=== PATIENT | female | born 1935 | race Caucasian/White ===

== ENCOUNTER 2021-07-20 11:23 | Outpatient (CLI) | payer MEDICARE | END 2021-07-20 11:24 | disposition home or self-care (01) | LOC: SCSRAD 11:23 | PROVIDERS: ATTEND Family Medicine | DX: R05.9 Cough, unspecified (principal) | CPT/HCPCS: 71046 ==

== ENCOUNTER 2021-12-05 13:31 | Outpatient (CLI) | payer MEDICARE ==
[2021-12-05 14:52] LABS: #Basophils 0.1 10x3/uL (0.0-0.2); #Eosinphils 0.3 10x3/uL (0.0-0.5); #Monocytes 0.5 10x3/uL (0.0-1.1); #Neutrophils 6.1 10x3/uL (1.5-8.4); %Basophils 1.4 % (0.0-2.0); %Eosinophils 3.2 % (0.0-6.0); %Lymphocytes 18.3 % (18.0-47.0); %Monocytes 6.1 % (0.0-10.0); %Neutrophils 70.4 % (40.0-75.0); Hemoglobin 14.8 g/dL (12.0-15.5); Mean Corpuscular Hemoglobin 30.2 pg (27.0-33.0); Mean Corpuscular Volume 97.3 fl (81.6-98.3); Mean Platelet Volume 11.6 fl (7.4-10.4); Platelet Count 270 10x3/uL (150-450); RBC Distribution Width 24.5 % (11.5-14.5); White Blood Cell (WBC) Count 8.7 10x3/uL (3.5-10.5)
[2021-12-05 15:20] LABS: Anion Gap 17 mmol/L (10-20); BUN (Urea Nitrogen) 23 mg/dL (9.8-20.1); Calc. Creatinine Clearance 0 mL/min (70-130); Calcium 9.1 mg/dL (7.8-10.44); Carbon Dioxide 27 mmol/L (23-31); Chloride 103 mmol/L (98-107); Glucose 143 mg/dL (83-110); Sodium 143 mmol/L (136-145)
[2021-12-05 17:05] LABS: Anisocytosis MODERATE=16-30 cells (100X) (0-5/hpf)
[2021-12-06 03:27] LABS: SARS-CoV-2 PCR by NAA Not Detected (NotDetected)
== END 2021-12-05 13:32 | disposition home or self-care (01) ==
LOC: LABBT 13:31
PROVIDERS: ATTEND Surgery
DX: Z01.812 Encounter for preprocedural laboratory examination (principal); K40.90 Unilateral inguinal hernia, without obstruction or gangrene, not specified as recurrent; Z20.822 Contact with and (suspected) exposure to COVID-19
CPT/HCPCS: 80048; 85025; 93005; U0003; U0005; 93010

== ENCOUNTER 2021-12-08 09:28 | Day surgery (SDC) | payer MEDICARE ==
[2021-12-02 13:01] VITALS: BMI 34.2
[2021-12-08] MEDS ORDERED: Lidocaine 1% w/Epinephrine 1:100K 30 ML VIAL ONE (10:58)
[2021-12-08] MEDS ORDERED: Bupivacaine PF 0.5% 30 ML VIAL ONE (10:58)
[2021-12-08] MEDS ORDERED: Bupivacaine 0.25% HCL 30 ML VIAL ONE (10:58)
[2021-12-08] MEDS ORDERED: ceFAZolin 2 GM/Dextrose 50 ML IVPB ONE (11:25)
[2021-12-08] MEDS ORDERED: Fentanyl 100 MCG/2 ML VIAL ONE (11:33)
[2021-12-08] MEDS ORDERED: PROPOFOL 200 MG/20 ML VIAL ONE (11:46)
[2021-12-08] MEDS ORDERED: ePHEDrine 50 MG/ML VIAL ONE (11:46)
[2021-12-08] MEDS ORDERED: Dexamethasone 20 MG/5 ML VIAL ONE (11:46)
[2021-12-08] MEDS ORDERED: Glycopyrrolate 0.2 MG/ML 5 ML SYRINGE ONE (11:46)
[2021-12-08] MEDS ORDERED: Lidocaine 1% PF 5 ML VIAL ONE (11:46)
[2021-12-08] MEDS ORDERED: Ondansetron PF 4 MG/2 ML Vial ONE (11:46)
[2021-12-08] MEDS ORDERED: PHENYLEPHRINE-NS 100 MCG/ML 10 ML SYRINGE ONE (11:46)
[2021-12-08] MEDS ORDERED: HYDROcodone/Acetaminophen 5/325 mg Tablet ONE (14:23)
== END 2021-12-08 15:10 | disposition home or self-care (01) ==
LOC: SDC 09:28
PROVIDERS: ATTEND Surgery
PROC: 0YU50JZ Supplement Right Inguinal Region with Synthetic Substitute, Open Approach (ICD-10-PCS; principal; 2021-12-08)
DX: K40.90 Unilateral inguinal hernia, without obstruction or gangrene, not specified as recurrent (principal); I10 Essential (primary) hypertension; E78.5 Hyperlipidemia, unspecified; K21.9 Gastro-esophageal reflux disease without esophagitis; M19.90 Unspecified osteoarthritis, unspecified site; E03.9 Hypothyroidism, unspecified; G25.81 Restless legs syndrome; D75.1 Secondary polycythemia; Z79.02 Long term (current) use of antithrombotics/antiplatelets; Z79.82 Long term (current) use of aspirin; Z79.899 Other long term (current) drug therapy; Z88.0 Allergy status to penicillin; Z88.2 Allergy status to sulfonamides
CPT/HCPCS: C1781; J0690; J1100; J2405; J2704; J3010; J3490; S0020

== ENCOUNTER 2022-02-16 10:39 | Inpatient (IN) | payer MEDICARE ==
[2022-02-16 11:17] LABS: #Lymphocytes 0.9 thou/uL (1.20-3.40); #Monocytes 1.1 thou/uL (0.11-0.59); #Neutrophils 12.9 thou/uL (1.40-6.50); %Basophils 0.1 % (0.0-1.0); %Eosinophils 0.2 % (0.0-10.0); %Lymphocytes 5.7 % (21.0-51.0); %Monocytes 7.5 % (0.0-10.0); %Neutrophils 86.4 % (42.0-75.0); Mean Corpuscular HGB CONC 31.8 g/dL (32.0-36.0); Mean Corpuscular Hemoglobin 35.2 pg (27.0-31.0); Mean Platelet Volume 9.2 fL (7.4-10.4); Platelet Count 241 thou/uL (130-400); Red Blood Cell (RBC) Count 3.97 mill/uL (4.20-5.40); White Blood Cell (WBC) Count 14.9 thou/uL (4.8-10.8)
[2022-02-16] MEDS ORDERED: cefTRIAXone\\ROCEPHIN 1 GM VIAL ONE (11:25)
[2022-02-16] MEDS ORDERED: Vancomycin 1 GM/200 ML BAG ONE (11:25)
[2022-02-16 11:27] LABS: INR-International Normal Ratio 1.2; PTT 33.5 sec (22.9-36.1); Prothrombin Time 15.1 sec (12.0-14.7)
[2022-02-16 11:31] LABS: MDiff Complete? YES; Macrocytosis MODERATE=16-30 cells (100X) (0-5/hpf); Ovalocytes SLIGHT = 2-5 cells (100X) (0-1/hpf); Platelet Morphology Comment Appears Adequate; Polychromasia SLIGHT = 2-3 cells (100X) (0-2/hpf)
[2022-02-16 11:40] LABS: ALT (SGPT) 7 U/L (8-55); AST (SGOT) 13 U/L (5-34); Albumin 3.5 g/dL (3.4-4.8); Alkaline Phosphatase 88 U/L (40-110); Anion Gap 15 mmol/L (10-20); BUN (Urea Nitrogen) 23 mg/dL (9.8-20.1); Bilirubin, Total 1.3 mg/dL (0.2-1.2); Calc. Creatinine Clearance 0 mL/min (70-130); Calcium 8.5 mg/dL (7.8-10.44); Carbon Dioxide 25 mmol/L (23-31); Chloride 105 mmol/L (98-107); Globulin 2.8 g/dL (2.4-3.5); Glucose 121 mg/dL (83-110); Potassium 3.8 mmol/L (3.5-5.1); Protein, Total 6.3 g/dL (5.8-8.1); Sodium 141 mmol/L (136-145)
[2022-02-16] MEDS ORDERED: Norepinephrine 8 MG/0.9% NS 250 ML ONE (13:02)
[2022-02-16] MEDS ORDERED: Ondansetron PF 4 MG/2 ML Vial IVP PRN (14:56)
[2022-02-16] MEDS ORDERED: Ondansetron ODT 4 MG TAB PO PRN (14:56)
[2022-02-16] MEDS ORDERED: Senokot S 8.6-50 MG TAB PO PRN (14:56)
[2022-02-16] MEDS ORDERED: Acetaminophen 325 MG TAB PO PRN (14:56)
[2022-02-16] MEDS ORDERED: Sodium Chloride 0.9% 1,000 ML IV SCH (15:45)
[2022-02-16] MEDS ORDERED: Norepinephrine 8 MG/0.9% NS 250 ML IVPB SCH (16:00)
[2022-02-16 16:26] LABS: SARS-CoV-2 NAA Rapid Test Not Detected (NotDetected)
[2022-02-16] MEDS ORDERED: cefTRIAXone\\ROCEPHIN 1 GM in Sodium Chloride 0.9% 100 ML IVPB SCH (18:30)
[2022-02-16 20:14] LABS: Bacteria/HPF None Seen HPF (None Seen); Bilirubin Negative (Negative); Blood, Urine 1+ (Negative); Clarity Turbid (Clear); Glucose, Urine (Dipstick) Normal (Negative); Ketone, Urine Trace mg/dL (Negative); Leukocyte 500 Leu/uL (Negative); Nitrite 2+ (Negative); Protein, Urine (Dipstick) 20 mg/dL (Neg-Trace); Specific Gravity, Urine 1.024 (1.002-1.036); Squamous Epithelial None Seen HPF (0-3); Urobilinogen Normal mg/dL (Less than 2); WBC/HPF Greater than 50 HPF (0-3)
[2022-02-16 20:15] LABS: Urine Culture Reflex Yes Yes
[2022-02-17] MEDS: Sodium Chloride 0.9% 1,000 ML IV SCH ×2 (01:34→08:45)
[2022-02-17 03:50] LABS: #Eosinphils 0.1 thou/uL (0.0-0.7); #Lymphocytes 1.1 thou/uL (1.20-3.40); #Monocytes 0.9 thou/uL (0.11-0.59); #Neutrophils 9.6 thou/uL (1.40-6.50); %Basophils 0.3 % (0.0-1.0); %Eosinophils 0.7 % (0.0-10.0); %Lymphocytes 9.3 % (21.0-51.0); %Monocytes 7.6 % (0.0-10.0); Hemoglobin 12.4 g/dL (12.0-16.0); Mean Corpuscular HGB CONC 31.2 g/dL (32.0-36.0); Mean Corpuscular Hemoglobin 34.8 pg (27.0-31.0); Mean Platelet Volume 8.9 fL (7.4-10.4); Platelet Count 231 thou/uL (130-400); RBC Distribution Width 17.2 % (11.5-14.5); Red Blood Cell (RBC) Count 3.55 mill/uL (4.20-5.40); White Blood Cell (WBC) Count 11.7 thou/uL (4.8-10.8)
[2022-02-17 04:10] LABS: Anion Gap 14 mmol/L (10-20); BUN (Urea Nitrogen) 19 mg/dL (9.8-20.1); Calc. Creatinine Clearance 49 mL/min (70-130); Calcium 7.9 mg/dL (7.8-10.44); Carbon Dioxide 23 mmol/L (23-31); Chloride 108 mmol/L (98-107); Glucose 85 mg/dL (83-110); Potassium 3.5 mmol/L (3.5-5.1); Sodium 141 mmol/L (136-145)
[2022-02-17 04:56] VITALS: BMI 26.7
[2022-02-17] MEDS: Enoxaparin Sodium 40 MG/0.4 ML SYRINGE SC SCH (08:45)
[2022-02-17] MEDS ORDERED: Enoxaparin Sodium 30 MG/0.3 ML SYRINGE SC SCH (09:00)
[2022-02-17] MEDS ORDERED: Vancomycin 1 GM in Premix Bag 1 BAG IVPB SCH (12:00)
[2022-02-17] MEDS: cefTRIAXone\\ROCEPHIN 2 GM in Sodium Chloride 0.9% 100 ML IVPB SCH (12:06)
[2022-02-17] MEDS ORDERED: Ondansetron ODT 4 MG TAB PO PRN (16:07)
[2022-02-17] MEDS ORDERED: HYDROcodone/Acetaminophen 5/325 mg Tablet PO PRN (16:07)
[2022-02-17] MEDS: Donepezil HCl 10 MG TAB PO SCH (20:25)
[2022-02-17] MEDS: Atorvastatin Calcium 40 MG TAB PO SCH (20:25)
[2022-02-17] MEDS: Melatonin 3 MG TAB PO PRN (20:25)
[2022-02-17] MEDS: Calcium Carbonate 500 MG ChewTAB PO SCH (20:25)
[2022-02-17] MEDS: Acetaminophen 500 MG TAB PO SCH (20:25)
[2022-02-17] MEDS: Azelastine 137 MCG/Spray 30 ML NS SCH (21:37)
[2022-02-18 04:36] LABS: #Basophils 0.1 thou/uL (0.0-0.2); #Eosinphils 0.2 thou/uL (0.0-0.7); #Lymphocytes 1.3 thou/uL (1.20-3.40); #Monocytes 1.2 thou/uL (0.11-0.59); #Neutrophils 9.9 thou/uL (1.40-6.50); %Basophils 0.6 % (0.0-1.0); %Eosinophils 1.8 % (0.0-10.0); %Lymphocytes 10.3 % (21.0-51.0); %Monocytes 9.1 % (0.0-10.0); %Neutrophils 78.3 % (42.0-75.0); Hemoglobin 13.2 g/dL (12.0-16.0); Mean Corpuscular HGB CONC 31.7 g/dL (32.0-36.0); Mean Corpuscular Hemoglobin 35.3 pg (27.0-31.0); Platelet Count 217 thou/uL (130-400); RBC Distribution Width 16.7 % (11.5-14.5); Red Blood Cell (RBC) Count 3.74 mill/uL (4.20-5.40); White Blood Cell (WBC) Count 12.6 thou/uL (4.8-10.8)
[2022-02-18 04:55] LABS: Anion Gap 11 mmol/L (10-20); BUN (Urea Nitrogen) 14 mg/dL (9.8-20.1); Calc. Creatinine Clearance 50 mL/min (70-130); Calcium 8.1 mg/dL (7.8-10.44); Carbon Dioxide 26 mmol/L (23-31); Chloride 108 mmol/L (98-107); Glucose 95 mg/dL (83-110); Potassium 3.3 mmol/L (3.5-5.1); Sodium 142 mmol/L (136-145)
[2022-02-18] MEDS ORDERED: Potassium Chloride 20 MEQ TAB PO SCH (05:00)
[2022-02-18] MEDS ORDERED: Diltiazem 125 MG in Sodium Chloride 0.9% 100 ML IVPB SCH ×2 (05:00→05:15)
[2022-02-18 05:27] LABS: Magnesium 2.2 mg/dL (1.6-2.6)
[2022-02-18] MEDS ORDERED: Diltiazem HCl 125 MG in Premix Bag 1 BAG IVPB SCH ×2 (05:45→16:02)
[2022-02-18] MEDS: Levothyroxine Sodium 88 MCG TAB PO SCH (05:58)
[2022-02-18] MEDS: Pregabalin 50 MG CAP PO SCH (08:59)
[2022-02-18] MEDS: Enoxaparin Sodium 40 MG/0.4 ML SYRINGE SC SCH (08:59)
[2022-02-18] MEDS: Loratadine 10 MG TAB PO SCH (08:59)
[2022-02-18] MEDS: Acetaminophen 500 MG TAB PO SCH ×2 (09:00→20:58)
[2022-02-18] MEDS: Hydroxyurea 500 MG CAP PO SCH (09:00)
[2022-02-18] MEDS: Clopidogrel Bisulfate 75 MG TAB PO SCH (09:00)
[2022-02-18] MEDS: Calcium Carbonate 500 MG ChewTAB PO SCH ×2 (09:00→20:58)
[2022-02-18] MEDS: cefTRIAXone\\ROCEPHIN 2 GM in Sodium Chloride 0.9% 100 ML IVPB SCH (09:01)
[2022-02-18] MEDS: Aspirin 81 mg Enteric Coated Tablet PO SCH (09:01)
[2022-02-18] MEDS: Azelastine 137 MCG/Spray 30 ML NS SCH ×2 (09:01→20:58)
[2022-02-18] MEDS: Potassium Bicarbonate/Cit Ac 20 MEQ TAB PO SCH (09:34)
[2022-02-18] MEDS: Sodium Chloride 0.9% 1,000 ML IV SCH (14:25)
[2022-02-18] MEDS: Dronedarone HCl 400 MG TAB PO SCH (17:08)
[2022-02-18] MEDS: Mometasone Furoate 120 PUFF 220 MCG INH SCH (18:29)
[2022-02-18] MEDS: Atorvastatin Calcium 40 MG TAB PO SCH (20:58)
[2022-02-18] MEDS: Melatonin 3 MG TAB PO PRN (20:58)
[2022-02-18] MEDS: Donepezil HCl 10 MG TAB PO SCH (20:58)
[2022-02-18] MEDS: Albuterol Sulfate 1.25 MG/3 ML NEB EZPAP PRN (23:56)
[2022-02-19] MEDS: Sodium Chloride 0.9% 1,000 ML IV SCH ×3 (00:33→20:16)
[2022-02-19 05:17] LABS: #Basophils 0.1 thou/uL (0.0-0.2); #Eosinphils 0.2 thou/uL (0.0-0.7); #Lymphocytes 1.1 thou/uL (1.20-3.40); #Monocytes 0.6 thou/uL (0.11-0.59); #Neutrophils 5.3 thou/uL (1.40-6.50); %Basophils 0.8 % (0.0-1.0); %Eosinophils 3.2 % (0.0-10.0); %Lymphocytes 14.5 % (21.0-51.0); %Monocytes 8.6 % (0.0-10.0); %Neutrophils 72.9 % (42.0-75.0); Hemoglobin 12.2 g/dL (12.0-16.0); Mean Corpuscular HGB CONC 30.7 g/dL (32.0-36.0); Mean Corpuscular Hemoglobin 35.7 pg (27.0-31.0); Mean Platelet Volume 9.2 fL (7.4-10.4); Platelet Count 219 thou/uL (130-400); RBC Distribution Width 17.1 % (11.5-14.5); Red Blood Cell (RBC) Count 3.41 mill/uL (4.20-5.40); White Blood Cell (WBC) Count 7.3 thou/uL (4.8-10.8)
[2022-02-19] MEDS: Levothyroxine Sodium 88 MCG TAB PO SCH (05:27)
[2022-02-19] MEDS: Albuterol Sulfate 1.25 MG/3 ML NEB EZPAP PRN ×2 (05:33→21:59)
[2022-02-19 05:37] LABS: Anion Gap 11 mmol/L (10-20); BUN (Urea Nitrogen) 12 mg/dL (9.8-20.1); Calc. Creatinine Clearance 54 mL/min (70-130); Calcium 7.9 mg/dL (7.8-10.44); Carbon Dioxide 23 mmol/L (23-31); Chloride 109 mmol/L (98-107); Glucose 82 mg/dL (83-110); Magnesium 2.1 mg/dL (1.6-2.6); Potassium 3.7 mmol/L (3.5-5.1); Sodium 139 mmol/L (136-145)
[2022-02-19] MEDS: Hydroxyurea 500 MG CAP PO SCH (10:46)
[2022-02-19] MEDS: Calcium Carbonate 500 MG ChewTAB PO SCH ×2 (10:46→20:15)
[2022-02-19] MEDS: Acetaminophen 500 MG TAB PO SCH ×2 (10:46→20:16)
[2022-02-19] MEDS: Dronedarone HCl 400 MG TAB PO SCH ×2 (10:47→16:27)
[2022-02-19] MEDS: Pregabalin 50 MG CAP PO SCH (10:47)
[2022-02-19] MEDS: Loratadine 10 MG TAB PO SCH (10:48)
[2022-02-19] MEDS: Azelastine 137 MCG/Spray 30 ML NS SCH ×2 (10:48→21:40)
[2022-02-19] MEDS: Aspirin 81 mg Enteric Coated Tablet PO SCH (10:48)
[2022-02-19] MEDS: Clopidogrel Bisulfate 75 MG TAB PO SCH (10:48)
[2022-02-19] MEDS: Potassium Bicarbonate/Cit Ac 20 MEQ TAB PO SCH (10:48)
[2022-02-19] MEDS: cefTRIAXone\\ROCEPHIN 2 GM in Sodium Chloride 0.9% 100 ML IVPB SCH (10:49)
[2022-02-19] MEDS: Enoxaparin Sodium 40 MG/0.4 ML SYRINGE SC SCH (10:49)
[2022-02-19] MEDS: Mometasone Furoate 120 PUFF 220 MCG INH SCH (18:18)
[2022-02-19] MEDS: Melatonin 3 MG TAB PO PRN (20:15)
[2022-02-19] MEDS: Donepezil HCl 10 MG TAB PO SCH (20:15)
[2022-02-19] MEDS: Atorvastatin Calcium 40 MG TAB PO SCH (20:15)
[2022-02-20 04:53] LABS: Magnesium 1.9 mg/dL (1.6-2.6)
[2022-02-20] MEDS: Sodium Chloride 0.9% 1,000 ML IV SCH ×2 (05:16→15:18)
[2022-02-20] MEDS: Levothyroxine Sodium 88 MCG TAB PO SCH (05:17)
[2022-02-20] MEDS: Aspirin 81 mg Enteric Coated Tablet PO SCH (08:24)
[2022-02-20] MEDS: Pregabalin 50 MG CAP PO SCH (08:25)
[2022-02-20] MEDS: Dronedarone HCl 400 MG TAB PO SCH ×2 (08:25→16:46)
[2022-02-20] MEDS: Acetaminophen 500 MG TAB PO SCH ×2 (08:25→21:12)
[2022-02-20] MEDS: Clopidogrel Bisulfate 75 MG TAB PO SCH (08:25)
[2022-02-20] MEDS: Potassium Bicarbonate/Cit Ac 20 MEQ TAB PO SCH (08:25)
[2022-02-20] MEDS: Azelastine 137 MCG/Spray 30 ML NS SCH ×2 (08:26→21:20)
[2022-02-20] MEDS: Loratadine 10 MG TAB PO SCH (08:26)
[2022-02-20] MEDS: Hydroxyurea 500 MG CAP PO SCH (08:26)
[2022-02-20] MEDS: Enoxaparin Sodium 40 MG/0.4 ML SYRINGE SC SCH (08:26)
[2022-02-20] MEDS: Calcium Carbonate 500 MG ChewTAB PO SCH ×2 (08:27→21:12)
[2022-02-20 10:23] LABS: #Eosinphils 0.2 thou/uL (0.0-0.7); #Lymphocytes 0.8 thou/uL (1.20-3.40); #Monocytes 0.3 thou/uL (0.11-0.59); #Neutrophils 5.8 thou/uL (1.40-6.50); %Basophils 0.5 % (0.0-1.0); %Eosinophils 3.3 % (0.0-10.0); %Lymphocytes 11.2 % (21.0-51.0); %Monocytes 4.8 % (0.0-10.0); %Neutrophils 80.2 % (42.0-75.0); Hemoglobin 12.1 g/dL (12.0-16.0); Mean Corpuscular HGB CONC 30.3 g/dL (32.0-36.0); Mean Corpuscular Hemoglobin 34.4 pg (27.0-31.0); Mean Platelet Volume 8.6 fL (7.4-10.4); Platelet Count 259 thou/uL (130-400); RBC Distribution Width 16.9 % (11.5-14.5); Red Blood Cell (RBC) Count 3.51 mill/uL (4.20-5.40); White Blood Cell (WBC) Count 7.2 thou/uL (4.8-10.8)
[2022-02-20 10:38] LABS: Anion Gap 11 mmol/L (10-20); BUN (Urea Nitrogen) 6 mg/dL (9.8-20.1); Calc. Creatinine Clearance 67 mL/min (70-130); Carbon Dioxide 20 mmol/L (23-31); Chloride 113 mmol/L (98-107); Glucose 81 mg/dL (83-110); Potassium 3.9 mmol/L (3.5-5.1); Sodium 140 mmol/L (136-145)
[2022-02-20] MEDS: cefTRIAXone\\ROCEPHIN 2 GM in Sodium Chloride 0.9% 100 ML IVPB SCH (11:55)
[2022-02-20] MEDS: Albuterol Sulfate 1.25 MG/3 ML NEB EZPAP PRN ×2 (13:38→19:25)
[2022-02-20] MEDS: Mometasone Furoate 120 PUFF 220 MCG INH SCH (19:30)
[2022-02-20] MEDS: Donepezil HCl 10 MG TAB PO SCH (21:12)
[2022-02-20] MEDS: Atorvastatin Calcium 40 MG TAB PO SCH (21:12)
[2022-02-20] MEDS: Cefdinir 300 MG CAP PO SCH (21:12)
[2022-02-21] MEDS: Sodium Chloride 0.9% 1,000 ML IV SCH ×2 (01:26→11:51)
[2022-02-21 04:21] LABS: Magnesium 1.9 mg/dL (1.6-2.6)
[2022-02-21] MEDS: Levothyroxine Sodium 88 MCG TAB PO SCH (05:48)
[2022-02-21] MEDS: Calcium Carbonate 500 MG ChewTAB PO SCH ×2 (09:43→21:13)
[2022-02-21] MEDS: Dronedarone HCl 400 MG TAB PO SCH ×2 (09:43→18:14)
[2022-02-21] MEDS: Acetaminophen 500 MG TAB PO SCH ×2 (09:43→21:16)
[2022-02-21] MEDS: Clopidogrel Bisulfate 75 MG TAB PO SCH (09:43)
[2022-02-21] MEDS: Cefdinir 300 MG CAP PO SCH ×2 (09:43→21:12)
[2022-02-21] MEDS: Enoxaparin Sodium 40 MG/0.4 ML SYRINGE SC SCH (09:43)
[2022-02-21] MEDS: Loratadine 10 MG TAB PO SCH (09:44)
[2022-02-21] MEDS: Potassium Bicarbonate/Cit Ac 20 MEQ TAB PO SCH (09:44)
[2022-02-21] MEDS: Aspirin 81 mg Enteric Coated Tablet PO SCH (09:44)
[2022-02-21] MEDS: Hydroxyurea 500 MG CAP PO SCH (09:44)
[2022-02-21] MEDS: Pregabalin 50 MG CAP PO SCH (09:44)
[2022-02-21] MEDS: Azelastine 137 MCG/Spray 30 ML NS SCH ×2 (09:45→21:13)
[2022-02-21] MEDS: Albuterol Sulfate 1.25 MG/3 ML NEB EZPAP PRN ×2 (11:24→19:03)
[2022-02-21] MEDS ORDERED: Lisinopril 10 MG TAB PO SCH (12:00)
[2022-02-21] MEDS ORDERED: Furosemide 40 MG/4 ML VIAL SLOW IVP SCH (12:00)
[2022-02-21] MEDS: Mometasone Furoate 120 PUFF 220 MCG INH SCH (19:01)
[2022-02-21] MEDS: Atorvastatin Calcium 40 MG TAB PO SCH (21:13)
[2022-02-21] MEDS: Melatonin 3 MG TAB PO PRN (21:16)
[2022-02-21] MEDS: Donepezil HCl 10 MG TAB PO SCH (21:22)
[2022-02-22] MEDS: Levothyroxine Sodium 88 MCG TAB PO SCH (05:25)
[2022-02-22] MEDS ORDERED: Lisinopril 5 MG TAB PO SCH (09:00)
[2022-02-22] MEDS ORDERED: Furosemide 40 MG TAB PO SCH (09:00)
[2022-02-22] MEDS: Enoxaparin Sodium 40 MG/0.4 ML SYRINGE SC SCH (09:39)
[2022-02-22] MEDS: Dronedarone HCl 400 MG TAB PO SCH (09:39)
[2022-02-22] MEDS: Aspirin 81 mg Enteric Coated Tablet PO SCH (09:40)
[2022-02-22] MEDS: Loratadine 10 MG TAB PO SCH (09:40)
[2022-02-22] MEDS: Cefdinir 300 MG CAP PO SCH (09:40)
[2022-02-22] MEDS: Pregabalin 50 MG CAP PO SCH (09:40)
[2022-02-22] MEDS: Clopidogrel Bisulfate 75 MG TAB PO SCH (09:42)
[2022-02-22] MEDS: Acetaminophen 500 MG TAB PO SCH (09:42)
[2022-02-22] MEDS: Hydroxyurea 500 MG CAP PO SCH (09:42)
[2022-02-22] MEDS: Calcium Carbonate 500 MG ChewTAB PO SCH (09:43)
[2022-02-22] MEDS: Potassium Bicarbonate/Cit Ac 20 MEQ TAB PO SCH (09:43)
[2022-02-22] MEDS: Azelastine 137 MCG/Spray 30 ML NS SCH (09:43)
[2022-02-22] MEDS: Albuterol Sulfate 1.25 MG/3 ML NEB EZPAP PRN (14:31)
[2022-02-22 16:10] VITALS: BP 162/72; TEMP 97.6
== END 2022-02-22 16:12 | DRG 871 ==
LOC: ERS 10:39 → CCU 14:56 → T4-B 02-17 13:39 → 2NO 02-18 03:21
PROVIDERS: ADMIT Emergency Medicine; ATTEND Emergency Medicine
PROC: 3E03329 Introduction of Other Anti-infective into Peripheral Vein, Percutaneous Approach (ICD-10-PCS; principal; 2022-02-16)
PROC: 3E033XZ Introduction of Vasopressor into Peripheral Vein, Percutaneous Approach (ICD-10-PCS; 2022-02-16)
DX: A41.9 Sepsis, unspecified organism (principal); Z66 Do not resuscitate; Z20.822 Contact with and (suspected) exposure to COVID-19; R65.21 Severe sepsis with septic shock; G93.41 Metabolic encephalopathy; N39.0 Urinary tract infection, site not specified; N17.9 Acute kidney failure, unspecified; E78.5 Hyperlipidemia, unspecified; K21.9 Gastro-esophageal reflux disease without esophagitis; E03.9 Hypothyroidism, unspecified; D45 Polycythemia vera; F03.90 Unspecified dementia, unspecified severity, without behavioral disturbance, psychotic disturbance, mood disturbance, and anxiety; N94.89 Other specified conditions associated with female genital organs and menstrual cycle; M19.90 Unspecified osteoarthritis, unspecified site; G47.00 Insomnia, unspecified; G47.33 Obstructive sleep apnea (adult) (pediatric); G25.81 Restless legs syndrome; I10 Essential (primary) hypertension; Z96.659 Presence of unspecified artificial knee joint; G62.9 Polyneuropathy, unspecified; H90.5 Unspecified sensorineural hearing loss; K40.90 Unilateral inguinal hernia, without obstruction or gangrene, not specified as recurrent; I48.91 Unspecified atrial fibrillation; E87.70 Fluid overload, unspecified; Z79.899 Other long term (current) drug therapy; Z86.73 Personal history of transient ischemic attack (TIA), and cerebral infarction without residual deficits; Z79.82 Long term (current) use of aspirin; Z79.02 Long term (current) use of antithrombotics/antiplatelets; Z79.51 Long term (current) use of inhaled steroids; Z79.890 Hormone replacement therapy; Z91.19 Patient's noncompliance with other medical treatment and regimen; Z80.41 Family history of malignant neoplasm of ovary; Z84.89 Family history of other specified conditions
CPT/HCPCS: 36415; 36416; 70450; 71045; 74177; 80048; 80053; 81001; 83605; 83735; 84145; 84443; 85025; 85610; 85730; 87040; 87086; 93005; 93010; 93306; 94640; 94760; J0696; J1650; J1940; J3370; J3490; J7050; U0002

== ENCOUNTER 2022-03-12 15:47 | Emergency (ER) | payer MEDICARE ==
[~2022-03-12 15:47] MED LIST: Iopamidol-370 76% 500 ML 1 ML ONE
[2022-03-12 18:03] LABS: #Basophils 0.1 thou/uL (0.0-0.2); #Eosinphils 0.2 thou/uL (0.0-0.7); #Lymphocytes 1.1 thou/uL (1.20-3.40); #Monocytes 0.6 thou/uL (0.11-0.59); #Neutrophils 4.8 thou/uL (1.40-6.50); %Basophils 1.1 % (0.0-1.0); %Eosinophils 3.7 % (0.0-10.0); %Lymphocytes 16.2 % (21.0-51.0); %Monocytes 8.8 % (0.0-10.0); %Neutrophils 70.4 % (42.0-75.0); Hemoglobin 11.1 g/dL (12.0-16.0); Mean Corpuscular HGB CONC 32.5 g/dL (32.0-36.0); Mean Corpuscular Hemoglobin 37.1 pg (27.0-31.0); Mean Platelet Volume 8.3 fL (7.4-10.4); Platelet Count 227 thou/uL (130-400); RBC Distribution Width 17.5 % (11.5-14.5); Red Blood Cell (RBC) Count 2.99 mill/uL (4.20-5.40); White Blood Cell (WBC) Count 6.8 thou/uL (4.8-10.8)
[2022-03-12 18:08] LABS: Bilirubin Negative (Negative); Blood, Urine Negative (Negative); Clarity Clear (Clear); Glucose, Urine (Dipstick) Normal (Negative); Ketone, Urine 20 mg/dL (Negative); Leukocyte Negative Leu/uL (Negative); Nitrite Negative (Negative); Protein, Urine (Dipstick) 10 mg/dL (Neg-Trace); Urobilinogen Normal mg/dL (Less than 2); pH, Urine 5.5 (5.0-9.0)
[2022-03-12 18:13] LABS: INR-International Normal Ratio 1.1; Prothrombin Time 14.3 sec (12.0-14.7)
[2022-03-12 18:16] LABS: ALT (SGPT) 14 U/L (8-55); AST (SGOT) 17 U/L (5-34); Albumin 3.6 g/dL (3.4-4.8); Alkaline Phosphatase 79 U/L (40-110); Anion Gap 13 mmol/L (10-20); BUN (Urea Nitrogen) 11 mg/dL (9.8-20.1); CK (CPK) 40 U/L (29-168); Calc. Creatinine Clearance 0 mL/min (70-130); Calcium 8.4 mg/dL (7.8-10.44); Carbon Dioxide 24 mmol/L (23-31); Chloride 111 mmol/L (98-107); Globulin 2.3 g/dL (2.4-3.5); Glucose 79 mg/dL (83-110); Potassium 4.1 mmol/L (3.5-5.1); Protein, Total 5.9 g/dL (5.8-8.1); Sodium 144 mmol/L (136-145)
[2022-03-12] MEDS ORDERED: HYDROcodone/Acetaminophen 5/325 mg Tablet ONE (19:02)
== END 2022-03-12 19:20 | disposition home or self-care (01) ==
LOC: ERS 15:47
DX: S30.0XXA Contusion of lower back and pelvis, initial encounter (principal); D64.9 Anemia, unspecified; K21.9 Gastro-esophageal reflux disease without esophagitis; E03.9 Hypothyroidism, unspecified; M19.90 Unspecified osteoarthritis, unspecified site; G47.00 Insomnia, unspecified; I10 Essential (primary) hypertension; Z79.899 Other long term (current) drug therapy; Z86.73 Personal history of transient ischemic attack (TIA), and cerebral infarction without residual deficits; Z79.82 Long term (current) use of aspirin; W18.30XA Fall on same level, unspecified, initial encounter
CPT/HCPCS: 36415; 51701; 72170; 72193; 80053; 81003; 82550; 83880; 84484; 85025; 85610; 85730; 93005; Q9967